=== PATIENT | male | born 2000 | race Caucasian/White ===

== ENCOUNTER 2022-04-13 01:49 | Emergency (ER) | payer SELFPAY ==
[~2022-04-13 01:49] MED LIST: CIPRO500 MG PO
== END 2022-04-13 03:52 | disposition home or self-care (01) ==
LOC: FER 01:49
DX: T20.17XA Burn of first degree of neck, initial encounter (principal); T22.10XA Burn of first degree of shoulder and upper limb, except wrist and hand, unspecified site, initial encounter; T31.0 Burns involving less than 10% of body surface; F17.200 Nicotine dependence, unspecified, uncomplicated; Z28.310 Unvaccinated for COVID-19; Z88.1 Allergy status to other antibiotic agents; X08.8XXA Exposure to other specified smoke, fire and flames, initial encounter; Y92.009 Unspecified place in unspecified non-institutional (private) residence as the place of occurrence of the external cause; Y93.89 Activity, other specified
CPT/HCPCS: 99283